=== PATIENT | female | born 1945 | race Caucasian/White ===

== ENCOUNTER 2018-05-31 20:51 | Outpatient (REF) | payer MEDICARE, SELFPAY ==
[2018-05-31 21:35] LABS: Abs Immature Grans 0.03 k/cumm (0.0-0.09); Absolute Basophil Count 0.04 k/cumm (0.0-0.2); Absolute Eosinophil Count 0.79 k/cumm (0.0-0.7); Absolute Lymphocyte Count 1.89 k/cumm (1.2-3.4); Absolute Monocyte Count 0.81 k/cumm (0.11-0.7); Basophils % 0.5; Eosinophils % 9.2; HCT 39.3 % (36.0-46.0); HGB 12.2 g/dL (12.0-15.5); Immature Grans % 0.4; Lymphocytes % 22.1; Mean Corpuscular Hemoglobin 31.2 pg (27.0-33.0); Mean Corpuscular Volume 100.5 fL (80-95); Mean Platelet Volume 9.9 fL (8.0-11.0); Monocytes % 9.5; Neutrophils % 58.3; Platelet Count 379 x1000/uL (130-400); RBC 3.91 m/cumm (4.00-5.20); RBC Distribution Width 14.6 % (11.7-14.6); White Blood Cell Count 8.56 k/cumm (4.4-10.8)
[2018-05-31 21:37] LABS: ALT 14 U/L (12-78); AST 18 U/L (15-37); Albumin 3.4 g/dL (3.4-5.0); Alkaline Phosphatase 134 U/L (46-116); Bilirubin, Direct 0.08 mg/dL (0.00-0.20); Bilirubin, Total 0.3 mg/dL (0.2-1.0); Total Protein 6.5 g/dL (6.4-8.2)
== END 2018-05-31 21:11 ==
LOC: NCHCN 20:51
PROVIDERS: PCP Internal Medicine; Visit Provider Internal Medicine
DX: I44.7 Left bundle-branch block, unspecified (principal)
CPT/HCPCS: 80076; 85025

== ENCOUNTER 2019-01-03 15:45 | Outpatient (REF) | payer MEDICARE, SELFPAY ==
[2019-01-03 19:21] LABS: ALT 16 U/L (12-78); AST 16 U/L (15-37); Albumin 3.6 g/dL (3.4-5.0); Alkaline Phosphatase 106 U/L (46-116); Bilirubin, Total 0.5 mg/dL (0.2-1.0); Total Protein 7.2 g/dL (6.4-8.2)
[2019-01-03 19:36] LABS: Abs Immature Grans 0.02 k/cumm (0.0-0.09); Absolute Basophil Count 0.04 k/cumm (0.0-0.2); Absolute Eosinophil Count 0.18 k/cumm (0.0-0.7); Absolute Lymphocyte Count 2.12 k/cumm (1.2-3.4); Absolute Monocyte Count 0.77 k/cumm (0.11-0.7); Absolute Neutrophil Count 4.68 k/cumm (1.2-6.7); Basophils % 0.5; Eosinophils % 2.3; HCT 44.1 % (36.0-46.0); HGB 14.4 g/dL (12.0-15.5); Immature Grans % 0.3; Lymphocytes % 27.1; Mean Corp. HGB Concentration 32.7 g/dL (32.0-36.0); Mean Corpuscular Hemoglobin 30.4 pg (27.0-33.0); Mean Platelet Volume 10.1 fL (8.0-11.0); Monocytes % 9.9; Neutrophils % 59.9; Platelet Count 308 x1000/uL (130-400); RBC 4.74 m/cumm (4.00-5.20); RBC Distribution Width 13.8 % (11.7-14.6); White Blood Cell Count 7.81 k/cumm (4.4-10.8)
== END 2019-01-03 16:05 ==
LOC: NCHCN 15:45
PROVIDERS: PCP Internal Medicine; Visit Provider Internal Medicine
DX: M06.9 Rheumatoid arthritis, unspecified (principal); Z79.899 Other long term (current) drug therapy
CPT/HCPCS: 80076; 85025

== ENCOUNTER 2019-03-14 15:30 | Outpatient (REF) | payer MEDICARE, SELFPAY ==
[2019-03-14 19:57] LABS: CREATININE 0.87 mg/dL (0.55-1.02); Glucose 85 mg/dL (70-100)
[2019-03-14 20:08] LABS: Vitamin D 25 Total 33.1 ng/ml (30-100)
== END 2019-03-14 15:50 ==
LOC: NCHCN 15:30
PROVIDERS: PCP Internal Medicine; Visit Provider Internal Medicine
DX: L88 Pyoderma gangrenosum (principal); E04.2 Nontoxic multinodular goiter; M06.9 Rheumatoid arthritis, unspecified; Z79.899 Other long term (current) drug therapy; M16.11 Unilateral primary osteoarthritis, right hip
CPT/HCPCS: 82306; 82947; 82565; 84443

== ENCOUNTER 2019-10-08 20:24 | Outpatient (REF) | payer MEDICARE, SELFPAY ==
[2019-10-08 20:28] LABS: HCT 43.6 % (36.0-46.0); HGB 14.2 g/dL (12.0-15.5); Mean Corp. HGB Concentration 32.6 g/dL (32.0-36.0); Mean Corpuscular Hemoglobin 30.6 pg (27.0-33.0); Mean Platelet Volume 9.9 fL (8.0-11.0); Platelet Count 352 x1000/uL (130-400); RBC 4.64 m/cumm (4.00-5.20); RBC Distribution Width 13.8 % (11.7-14.6); White Blood Cell Count 7.16 k/cumm (4.4-10.8)
[2019-10-08 20:41] LABS: ALT 12 U/L (14-59); AST 22 U/L (15-37); Albumin 3.7 g/dL (3.4-5.0); Alkaline Phosphatase 84 U/L (46-116); Anion Gap 6.9 mmol/L (3-11); BUN 21 mg/dL (7-18); Bilirubin, Total 0.4 mg/dL (0.2-1.0); CO2 28.1 mmol/L (21.0-32.0); CREATININE 0.88 mg/dL (0.55-1.02); Calcium 8.8 mg/dL (8.5-10.1); Chloride 102 mmol/L (98-107); Glucose 103 mg/dL (74-106); Potassium 4.2 mmol/L (3.5-5.1); Sodium 137 mmol/L (136-145); Total Protein 7.3 g/dL (6.4-8.2)
== END 2019-10-08 20:44 ==
LOC: NCHCN 20:24
PROVIDERS: PCP Internal Medicine; Visit Provider Internal Medicine
DX: M06.9 Rheumatoid arthritis, unspecified (principal); N30.00 Acute cystitis without hematuria
CPT/HCPCS: 80053; 85027

== ENCOUNTER 2020-04-09 10:48 | Outpatient (REF) | payer MEDICARE, SELFPAY ==
[2020-04-09 20:12] LABS: Abs Immature Grans 0.01 k/cumm (0.0-0.09); Absolute Basophil Count 0.02 k/cumm (0.0-0.2); Absolute Lymphocyte Count 2.07 k/cumm (1.2-3.4); Absolute Monocyte Count 0.73 k/cumm (0.11-0.7); Absolute Neutrophil Count 3.11 k/cumm (1.2-6.7); Basophils % 0.3; Eosinophils % 3.3; HCT 45.5 % (36.0-46.0); HGB 14.9 g/dL (12.0-15.5); Immature Grans % 0.2 %; Lymphocytes % 33.7; Mean Corp. HGB Concentration 32.7 g/dL (32.0-36.0); Mean Corpuscular Hemoglobin 30.5 pg (27.0-33.0); Mean Platelet Volume 10.3 fL (8.0-11.0); Monocytes % 11.9; Neutrophils % 50.6; Platelet Count 321 x1000/uL (130-400); RBC 4.89 m/cumm (4.00-5.20); White Blood Cell Count 6.14 k/cumm (4.4-10.8)
[2020-04-09 20:28] LABS: ALT 18 U/L (14-59); AST 19 U/L (15-37); Albumin 3.6 g/dL (3.4-5.0); Alkaline Phosphatase 83 U/L (46-116); Anion Gap 7.7 mmol/L (3-11); BUN 22 mg/dL (7-18); Bilirubin, Total 0.5 mg/dL (0.2-1.0); CO2 29.3 mmol/L (21.0-32.0); CREATININE 0.98 mg/dL (0.55-1.02); Calcium 9.4 mg/dL (8.5-10.1); Chloride 101 mmol/L (98-107); Estimated GFR 55.63 (mL/min/1.73m2); Glucose 102 mg/dL (74-106); Potassium 4.3 mmol/L (3.5-5.1); Sodium 138 mmol/L (136-145); Total Protein 7.1 g/dL (6.4-8.2)
== END 2020-04-09 11:08 ==
LOC: NCHCN 10:48
PROVIDERS: PCP Internal Medicine; Visit Provider Internal Medicine
DX: Z51.81 Encounter for therapeutic drug level monitoring (principal)
CPT/HCPCS: 80053; 85025

== ENCOUNTER 2020-10-11 19:28 | Outpatient (REF) | payer MEDICARE, SELFPAY ==
[2020-10-11 19:41] LABS: HGB 15.4 g/dL (11.2-15.7); MCH 30.5 pg (27.0-33.0); MCHC 32.8 % (32.0-36.0); MCV 93.1 fL (80-95); MPV 10.4 fL (8.0-11.0); Platelet Count 307 10^3/uL (130-400); RBC 5.05 10^6/uL (3.93-5.22); RDW 13.5 % (11.7-14.6); RDW-SD 45.8 fL; WBC 7.37 10^3/uL (4.4-10.8)
[2020-10-11 20:23] LABS: ALT 20 U/L (14-59); AST 21 U/L (15-37); Albumin 4.2 g/dL (3.4-5.0); Alkaline Phosphatase 94 U/L (46-116); Bilirubin, Direct 0.08 mg/dL (0.00-0.20); Bilirubin, Total 0.5 mg/dL (0.2-1.0); Total Protein 7.7 g/dL (6.4-8.2)
== END 2020-10-11 19:48 ==
LOC: NCHCN 19:28
PROVIDERS: PCP Internal Medicine; Visit Provider Internal Medicine
DX: M06.9 Rheumatoid arthritis, unspecified (principal); K21.9 Gastro-esophageal reflux disease without esophagitis; Z71.89 Other specified counseling
CPT/HCPCS: 80076; 85027

== ENCOUNTER 2021-04-13 06:57 | Outpatient (REF) | payer MEDICARE, SELFPAY ==
[2021-04-13 20:45] LABS: HCT 46.8 % (36.0-46.0); HGB 14.9 g/dL (11.2-15.7); MCH 30.3 pg (27.0-33.0); MCHC 31.8 % (32.0-36.0); MCV 95.3 fL (80-95); MPV 10.2 fL (8.0-11.0); Platelet Count 323 10^3/uL (130-400); RBC 4.91 10^6/uL (3.93-5.22); RDW 13.1 % (11.7-14.6); RDW-SD 45.3 fL; WBC 8.07 10^3/uL (4.4-10.8)
[2021-04-13 21:02] LABS: ALT 22 U/L (14-59); AST 16 U/L (15-37); Albumin 3.7 g/dL (3.4-5.0); Alkaline Phosphatase 98 U/L (46-116); Anion Gap 7.9 mmol/L (3-11); BUN 18 mg/dL (7-18); Bilirubin, Total 0.6 mg/dL (0.2-1.0); CO2 29.1 mmol/L (21.0-32.0); CREATININE 0.9 mg/dL (0.55-1.02); Calcium 8.9 mg/dL (8.5-10.1); Chloride 104 mmol/L (98-107); Glucose 184 mg/dL (74-106); Sodium 141 mmol/L (136-145); Total Protein 7.3 g/dL (6.4-8.2)
== END 2021-04-13 06:58 | disposition home or self-care (01) ==
LOC: NCHCN 06:57
PROVIDERS: PCP Internal Medicine; Visit Provider Internal Medicine
DX: I44.7 Left bundle-branch block, unspecified (principal); K21.9 Gastro-esophageal reflux disease without esophagitis
CPT/HCPCS: 80053; 85027

== ENCOUNTER 2021-07-01 15:57 | Outpatient (REF) | payer MEDICARE, SELFPAY ==
[2021-07-01 18:36] LABS: HCT 44.6 % (36.0-46.0); HGB 14.1 g/dL (11.2-15.7); MCH 30.1 pg (27.0-33.0); MCHC 31.6 % (32.0-36.0); MCV 95.1 fL (80-95); MPV 10.1 fL (8.0-11.0); Platelet Count 306 10^3/uL (130-400); RBC 4.69 10^6/uL (3.93-5.22); RDW 13.2 % (11.7-14.6); RDW-SD 45.8 fL; WBC 7.66 10^3/uL (4.4-10.8)
[2021-07-01 19:10] LABS: ALT 25 U/L (14-59); AST 17 U/L (15-37); Albumin 3.7 g/dL (3.4-5.0); Alkaline Phosphatase 94 U/L (46-116); Bilirubin, Total 0.4 mg/dL (0.2-1.0); Total Protein 7.2 g/dL (6.4-8.2)
[2021-07-01 19:19] LABS: Bilirubin, Direct 0.1 mg/dL (0.0-0.2)
== END 2021-07-01 15:58 | disposition home or self-care (01) ==
LOC: NCHCN 15:57
PROVIDERS: PCP Internal Medicine; Visit Provider Internal Medicine
DX: M06.9 Rheumatoid arthritis, unspecified (principal); Z51.81 Encounter for therapeutic drug level monitoring
CPT/HCPCS: 80076; 85027

== ENCOUNTER 2021-12-29 15:57 | Outpatient (REF) | payer MEDICARE, SELFPAY ==
[2021-12-29 19:38] LABS: ALT 16 U/L (14-59); AST 17 U/L (15-37); Albumin 3.8 g/dL (3.4-5.0); Alkaline Phosphatase 97 U/L (46-116); Anion Gap 9.7 mmol/L (3-11); BUN 18 mg/dL (7-18); Bilirubin, Total 0.3 mg/dL (0.2-1.0); CO2 27.3 mmol/L (21.0-32.0); CREATININE 0.8 mg/dL (0.55-1.02); Calcium 8.6 mg/dL (8.5-10.1); Chloride 104 mmol/L (98-107); Glucose 101 mg/dL (74-106); Potassium 4.3 mmol/L (3.5-5.1); Sodium 141 mmol/L (136-145); Total Protein 7.4 g/dL (6.4-8.2)
[2021-12-29 19:46] LABS: HGB 14.6 g/dL (11.2-15.7); MCHC 31.7 % (32.0-36.0); MCV 94.7 fL (80-95); Platelet Count 338 10^3/uL (130-400); RBC 4.86 10^6/uL (3.93-5.22); RDW 13.2 % (11.7-14.6); RDW-SD 45.5 fL; WBC 7.38 10^3/uL (4.4-10.8)
== END 2021-12-29 15:58 | disposition home or self-care (01) ==
LOC: NCHCN 15:57
PROVIDERS: PCP Internal Medicine; Visit Provider Internal Medicine
DX: M17.12 Unilateral primary osteoarthritis, left knee (principal); L88 Pyoderma gangrenosum
CPT/HCPCS: 80053; 82306; 85027

== ENCOUNTER 2022-07-04 08:56 | Outpatient (REF) | payer MEDICARE, SELFPAY ==
[2022-07-04 18:44] LABS: HCT 46.1 % (36.0-46.0); HGB 15.1 g/dL (11.2-15.7); MCH 30.6 pg (27.0-33.0); MCHC 32.8 % (32.0-36.0); MCV 94 fL (80-95); Platelet Count 321 10^3/uL (130-400); RBC 4.93 10^6/uL (3.93-5.22); RDW 13.2 % (11.7-14.6); RDW-SD 45.2 fL; WBC 6.25 10^3/uL (4.4-10.8)
[2022-07-04 19:08] LABS: ALT 23 U/L (14-59); AST 25 U/L (15-37); Albumin 3.7 g/dL (3.4-5.0); Alkaline Phosphatase 78 U/L (46-116); Anion Gap 6.4 mmol/L (3-11); BUN 18 mg/dL (7-18); Bilirubin, Total 0.5 mg/dL (0.2-1.0); CO2 30.6 mmol/L (21.0-32.0); CREATININE 0.9 mg/dL (0.55-1.02); Calcium 9.2 mg/dL (8.5-10.1); Chloride 102 mmol/L (98-107); Estimated GFR 66.67 (mL/min/1.73m2); Glucose 106 mg/dL (74-106); Potassium 4.6 mmol/L (3.5-5.1); Sodium 139 mmol/L (136-145); Total Protein 7.8 g/dL (6.4-8.2)
== END 2022-07-04 08:57 | disposition home or self-care (01) ==
LOC: NCHCN 08:56
PROVIDERS: PCP Internal Medicine; Visit Provider Internal Medicine
DX: M06.9 Rheumatoid arthritis, unspecified (principal)
CPT/HCPCS: 80053; 85027

== ENCOUNTER 2023-01-05 16:42 | Outpatient (REF) | payer MEDICARE, SELFPAY ==
[2023-01-05 19:37] LABS: Bilirubin Negative (Negative); Blood Trace-intact (Negative); Clarity Sl Cloudy (Clear); Glucose Negative (Negative); HCT 44.6 % (36.0-46.0); HGB 14.6 g/dL (11.2-15.7); Ketones Trace mg/dL (Negative); Leukocyte Esterase Small (Negative); MCH 30.5 pg (27.0-33.0); MCHC 32.7 % (32.0-36.0); MCV 93 fL (80-95); MPV 10.1 fL (8.0-11.0); Nitrite Positive (Negative); Platelet Count 334 10^3/uL (130-400); RBC 4.79 10^6/uL (3.93-5.22); RDW 13.4 % (11.7-14.6); RDW-SD 45.3 fL; Specific Gravity >= 1.030 (1.005-1.025); Urobilinogen 0.2 mg/dL (Up to 0.2); WBC 10.76 10^3/uL (4.4-10.8); pH 5.5 (5-8)
[2023-01-05 19:43] LABS: Bacteria Moderate HPF (Negative); C & S Indicated? Yes; Casts Negative LPF (Negative); Crystals Negative HPF (Negative); Epithelial Cells Few HPF (Negative); Mucus Negative (Negative)
[2023-01-05 20:03] LABS: ALT 24 U/L (14-59); AST 23 U/L (15-37); Albumin 3.8 g/dL (3.4-5.0); Alkaline Phosphatase 85 U/L (46-116); Anion Gap 8.7 mmol/L (3-11); BUN 21 mg/dL (7-18); Bilirubin, Total 0.4 mg/dL (0.2-1.0); CO2 27.3 mmol/L (21.0-32.0); Calcium 9.4 mg/dL (8.5-10.1); Chloride 104 mmol/L (98-107); Estimated GFR 58.39 (mL/min/1.73m2); Glucose 104 mg/dL (74-106); Potassium 4.5 mmol/L (3.5-5.1); Sodium 140 mmol/L (136-145)
== END 2023-01-05 16:43 | disposition home or self-care (01) ==
LOC: NCHCN 16:42
PROVIDERS: PCP Internal Medicine; Visit Provider Internal Medicine
DX: L88 Pyoderma gangrenosum (principal); R35.0 Frequency of micturition; R30.0 Dysuria; Z79.899 Other long term (current) drug therapy
CPT/HCPCS: 80053; 85027; 87077; 81003; 81015; 87086; 87186

== ENCOUNTER 2023-07-04 20:03 | Outpatient (REF) | payer MEDICARE, SELFPAY ==
[2023-07-04 20:15] LABS: Abs Immature Grans 0.02 10^3/uL (0.0-0.06); Absolute Basophil Count 0.07 10^3/uL (0.0-0.2); Absolute Eosinophil Count 0.17 10^3/uL (0.0-0.7); Absolute Lymphocyte Count 2.02 10^3/uL (1.2-3.4); Basophils % 0.9; Eosinophils % 2.1; HCT 44.6 % (36.0-46.0); HGB 14.4 g/dL (11.2-15.7); Immature Grans % 0.2; Lymphocytes % 24.7; MCHC 32.3 % (32.0-36.0); MCV 93 fL (80-95); MPV 9.8 fL (8.0-11.0); Monocytes % 8.6; Neutrophils % 63.5; Platelet Count 314 10^3/uL (130-400); RDW 13.2 % (11.7-14.6); RDW-SD 45.1 fL; WBC 8.18 10^3/uL (4.4-10.8)
[2023-07-04 21:08] LABS: ALT 17 U/L (14-59); AST 19 U/L (15-37); Albumin 3.5 g/dL (3.4-5.0); Alkaline Phosphatase 90 U/L (46-116); Anion Gap 4.9 mmol/L (3-11); BUN 17 mg/dL (7-18); Bilirubin, Total 0.2 mg/dL (0.2-1.0); CO2 29.1 mmol/L (21.0-32.0); CREATININE 0.8 mg/dL (0.55-1.02); Calcium 9.4 mg/dL (8.5-10.1); Chloride 106 mmol/L (98-107); Estimated GFR 76.31 (mL/min/1.73m2); Glucose 138 mg/dL (74-106); Potassium 4.3 mmol/L (3.5-5.1); Sodium 140 mmol/L (136-145); Total Protein 7.5 g/dL (6.4-8.2)
[2023-07-05 12:02] LABS: ESR (LRH) 25 mm/hr
[2023-07-05 18:11] LABS: CRP, High Sensitivity 4.43 mg/L (See Note)
== END 2023-07-04 20:04 | disposition home or self-care (01) ==
LOC: NCHCN 20:03
PROVIDERS: PCP Internal Medicine; Visit Provider Internal Medicine
DX: M06.9 Rheumatoid arthritis, unspecified (principal); M17.9 Osteoarthritis of knee, unspecified; Z79.899 Other long term (current) drug therapy
CPT/HCPCS: 80053; 85652; 86141; 85025

== ENCOUNTER 2024-05-23 15:38 | Outpatient (REF) | payer MEDICARE, SELFPAY ==
[2024-05-23 18:22] LABS: HGB 14.8 g/dL (11.2-15.7); MCH 31.4 pg (27.0-33.0); MCHC 32.9 % (32.0-36.0); MCV 96 fL (80-95); MPV 10.5 fL (8.0-11.0); Platelet Count 294 10^3/uL (130-400); RBC 4.71 10^6/uL (3.93-5.22); RDW 13.1 % (11.7-14.6); RDW-SD 45.5 fL
[2024-05-23 18:40] LABS: ALT 15 U/L (14-59); AST 20 U/L (15-37); Albumin 3.8 g/dL (3.4-5.0); Alkaline Phosphatase 78 U/L (46-116); Anion Gap 6.9 mmol/L (3-11); BUN 19 mg/dL (7-18); Bilirubin, Total 0.49 mg/dL (0.2-1.0); CO2 29.1 mmol/L (21.0-32.0); CREATININE 0.9 mg/dL (0.55-1.02); Calcium 9.7 mg/dL (8.5-10.1); Chloride 101 mmol/L (98-107); Estimated GFR 65.84 (mL/min/1.73m2); Glucose 103 mg/dL (74-106); Potassium 4.9 mmol/L (3.5-5.1); Sodium 137 mmol/L (136-145); Total Protein 7.5 g/dL (6.4-8.2)
== END 2024-05-23 15:39 | disposition home or self-care (01) ==
LOC: NCHCN 15:38
PROVIDERS: PCP Internal Medicine; Visit Provider Internal Medicine
DX: Z79.631 Long term (current) use of antimetabolite agent (principal)
CPT/HCPCS: 80053; 85027

== ENCOUNTER 2024-06-23 14:54 | Outpatient (REF) | payer MEDICARE, SELFPAY ==
[2024-06-23 19:34] LABS: Bilirubin Negative (Negative); Blood Trace-lysed (Negative); Clarity Cloudy (Clear); Glucose Negative (Negative); Ketones Trace mg/dL (Negative); Leukocyte Esterase Moderate (Negative); Nitrite Positive (Negative); Specific Gravity 1.025 (1.005-1.025); Urobilinogen 0.2 mg/dL (Up to 0.2)
[2024-06-23 20:05] LABS: Bacteria Many HPF (Negative); Epithelial Cells Many HPF (Negative); WBC >50 HPF (0-5)
[2024-06-23 20:06] LABS: C & S Indicated? No/Sq. Contamination; Crystals Negative HPF (Negative); Mucus Negative (Negative)
== END 2024-06-23 14:55 | disposition home or self-care (01) ==
LOC: NCHCN 14:54
PROVIDERS: PCP Internal Medicine; Visit Provider Internal Medicine
DX: N81.9 Female genital prolapse, unspecified (principal)
CPT/HCPCS: 81003; 81015

== ENCOUNTER 2025-04-13 15:26 | Outpatient (REF) | payer MEDICARE, SELFPAY ==
[2025-04-13 19:41] LABS: HCT 45.7 % (36.0-46.0); HGB 15.0 g/dL (11.2-15.7); MCH 30.8 pg (27.0-33.0); MCHC 32.8 % (32.0-36.0); MCV 94 fL (80-95); MPV 10.1 fL (8.0-11.0); Platelet Count 287 10^3/uL (130-400); RBC 4.87 10^6/uL (3.93-5.22); RDW 12.6 % (11.7-14.6); RDW-SD 43.3 fL; WBC 7.02 10^3/uL (4.4-10.8)
[2025-04-13 19:51] LABS: ALT 21 U/L (14-59); AST 18 U/L (15-37); Albumin 3.6 g/dL (3.4-5.0); Alkaline Phosphatase 100 U/L (46-116); Anion Gap 4.6 mmol/L (3-11); BUN 20 mg/dL (7-18); Bilirubin, Total 0.3 mg/dL (0.2-1.0); CO2 31.4 mmol/L (21.0-32.0); Calcium 9.1 mg/dL (8.5-10.1); Chloride 105 mmol/L (98-107); Estimated GFR 88.47 (mL/min/1.73m2); Glucose 111 mg/dL (74-106); Potassium 3.9 mmol/L (3.5-5.1); Sodium 141 mmol/L (136-145); Total Protein 7.6 g/dL (6.4-8.2)
== END 2025-04-13 15:27 | disposition home or self-care (01) ==
LOC: NCHCN 15:26
PROVIDERS: PCP Internal Medicine; Visit Provider Internal Medicine
DX: Z79.899 Other long term (current) drug therapy (principal)
CPT/HCPCS: 80053; 85027